=== PATIENT | male | born 1980 | race Caucasian/White ===

== ENCOUNTER 2025-06-24 12:40 | Inpatient (IN) | payer SELFPAY ==
[~2025-06-24] VITALS: Ht 190.5 cm; Wt 102.3 kg
[2025-06-24 14:05] LABS: MEAN PLATELET VOLUME 8.2 FL (7.4-10.4); RED CELL DISTRIBUTION WIDTH 14.1 % (11.5-14.5)
[2025-06-24 14:13] LABS: CREATININE 0.83 MG/DL (0.60-1.10); TOTAL CARBON DIOXIDE 25.4 MMOL/L (24-32); eCRCL 136 ML/MIN; eGFR > 90 ML/MIN
--- NOTE | 2025-06-24 14:18 | RADIOLOGY REPORT ---
Indication: numbness in legs and bowel incont. focus on lumbar please Technique: CT axial images of the abdomen and pelvis are obtained without contrast. Coronal and sagittal reformats were obtained. Radiation Dose Information: CTDI volume is 34 mGy. Dose-length product is 1708 mGy*cm Comparison: None FINDINGS: There is limited interpretation of the abdomen and pelvis without administration of intravenous contrast. Lung bases demonstrate no pleural effusion Adrenal glands, spleen, pancreas unremarkable in shape. Liver unremarkable in shape. No CT evidence for cholelithiasis. No hydronephrosis /nephrolithiasis. Stomach partially distended. Small bowel loops are normal in caliber. Colonic diverticula. No secondary signs for appendicitis. Bladder partially distended. No free pelvic fluid. No inguinal lymphadenopathy. No aggressive osseous process. Trch-ev-hmgzahuh thoracolumbar degenerative disc disease. IMPRESSION: Limited evaluation without contrast. No hydronephrosis/ nephrolithiasis. No bowel obstruction.
--- NOTE | 2025-06-24 15:03 | RADIOLOGY REPORT ---
EXAM: CT CT L SPINE RECONSTRUCTIION HISTORY: 45-year-old male with lower extremity numbness, bowel incontinence. COMPARISON: None available. TECHNIQUE: Noncontrast axial CT images of the lumbar spine were performed. Sagittal and coronal reformatted images were obtained. This CT exam was performed using one or more of the following dose reduction techniques: Automated exposure control, adjustment of the mA and/or kv according to patient size, or the use of iterative reconstruction techniques. Radiation Dose: CT Dose: CTDI volume is 34 mGy. Dose-length product is 1708 mGy*cm FINDINGS: No fracture or listhesis are identified about the lumbar spine. There is mild lumbar degenerative disc disease. There are thoracolumbar and lumbosacral transitional vertebrae. There is significant neural foraminal stenosis on the right at L4-L5. There is mild spinal canal stenosis at every disc level L2-L5. No high-grade spinal canal stenosis is identified at any level in the lumbar spine. There are mild sacroiliac degenerative changes bilaterally. The prostate is mildly enlarged. IMPRESSION: 1. No fracture of the lumbar spine. 2. Lumbar degenerative disc disease with multilevel mild spinal canal stenosis. No high-grade spinal canal stenosis at any level in the lumbar spine. 3. Significant neural foraminal stenosis on the right at L4-L5. These findings May correspond to right lower extremity radicular symptoms in the L4 nerve root distribution. 4. Thoracolumbar and lumbosacral transitional vertebrae incidentally noted. 5. Mild prostatic enlargement.
[2025-06-24 15:12] LABS: LEUKOCYTE ESTERASE ,URINE NEGATIVE (Neg); NITRITES, URINE NEGATIVE (Neg); OCCULT BLOOD,URINE NEGATIVE (Neg); UA COLLECTION TYPE NON-SPECIFIED
[2025-06-24 15:18] LABS: MUCUS STRANDS MODERATE /LPF (Neg); SQUAMOUS EPITHELIAL CELL,UR NONE SEEN /LPF (FEW)
--- NOTE | 2025-06-24 15:19 | RADIOLOGY REPORT ---
Exam: CT CT HEAD History: ascending numbness/weakness Technique: [address] images through the posterior fossa and the supratentorial compartment were acquired without contrast and imaged using soft tissue and bone algorithms. RADIATION DOSE: DLP 1111.63 mGy.cm; CTDI vol 58.92 mGy. Comparison: None Findings: There is no evidence of an intracranial hemorrhage, acute large vessel infarct, mass effect, or midline shift. No significant calcification of the carotid siphons. The calvarium, orbits, paranasal sinuses, sella, middle ears, and mastoids are unremarkable. The superficial soft tissues are within normal limits. Impression: 1. No acute intracranial abnormality.
[2025-06-24 15:23] LABS: URINE AMPHETAMINE SCREEN NEGATIVE (Neg); URINE BARBITUATE SCREEN NEGATIVE (Neg); URINE BENZODIAZEPINES SCREEN NEGATIVE (Neg); URINE CANNABINOID SCREEN POSITIVE (Neg); URINE COCAINE SCREEN NEGATIVE (Neg); URINE METHADONE SCREEN NEGATIVE (Neg); URINE OPIATE SCREEN NEGATIVE (Neg); URINE PHENCYCLIDINE SCREEN NEGATIVE (Neg)
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
--- NOTE | 2025-06-24 15:55 | RADIOLOGY REPORT ---
Indication: upper and lower extremity weakness Technique: CT axial images of the thoracic spine are obtained without contrast. Coronal and sagittal reformats were obtained. Radiation Dose Information: CTDI volume is 24 mGy. Dose-length product is 953 mGy*cm Comparison: None FINDINGS: Thoracic vertebral body heights are maintained. Siqb-eh-jwvlsuvm multilevel disc space narrowing. Alignment preserved. Mild facet hypertrophic changes. No CT evidence for high-grade neural foraminal stenosis in the thoracic spine. 3 mm disc osteophyte complex at T8-9. IMPRESSION: Mwim-ey-quvyveya thoracic degenerative disc disease.
[2025-06-24] MEDS: HYDROcodone/acetaminophen 5mg/325mg tablet PO ONE (16:11)
[2025-06-24] MEDS ORDERED: GABA-530 PO (16:23)
--- NOTE | 2025-06-24 17:40 | RADIOLOGY REPORT ---
EXAM: MR MRI LUMBAR SPINE INDICATION: ascending weakness and numbness TECHNIQUE: Multiplanar, multisequence MR images of the lumbar spine were obtained without the administration of IV contrast. COMPARISON: CT CT L SPINE RECONSTRUCTIION on DOS: 06/24/25 FINDINGS: [ANATOMY]: Five lumbar-type vertebral bodies are present. The most inferior well-formed disc space will be referred to as L5-S1 for purposes of numbering in this report. Favor congenitally short pedicles most conspicuous at L2-3, L3-4, L4-5 and L5-S1. [VERTEBRAL BODIES]: The vertebral bodies are normal in height, alignment, and marrow signal. [SPINAL CANAL]: The conus medullaris is normal in signal and morphology, terminating at the L1-L2 level. Mild relative diffuse spinal canal narrowing most conspicuous at L3-4 and L4-5 and L5-S1 relative to the thoracic canal. [FACETS]: Mild bilateral multilevel facet arthropathy. [OTHER]: None. LEVEL BY LEVEL DISCUSSION: [T12-L1]: Unremarkable. [L1-L2]: Unremarkable. [L2-L3]: Unremarkable. [L3-L4]: Unremarkable. [L4-L5]: Broad-based central disc protrusion measuring 2 mm which May affect the descending L5 nerve roots. Trace ligamentum flavum buckling. mild bilateral foraminal narrowing with mild bilateral facet arthropathy [L5-S1]: Unremarkable. IMPRESSION: 1. Trace disc protrusion at L4-5 which may affect the descending L5 nerve roots. 2. Mild bilateral L4-5 foraminal narrowing.
[2025-06-24] MEDS ORDERED: potassium Cl 40MEQ/1/2NS 520ml 520 ML IV PRN (18:45)
[2025-06-24] MEDS ORDERED: HYDROcodone/acetaminophen 5mg/325mg tablet PO PRN (18:45)
[2025-06-24] MEDS ORDERED: mag hydrox/Alum hydrox/simeth 30ml oral suspension PO PRN (18:45)
[2025-06-24] MEDS ORDERED: ondansetron/PF 4mg/2ml inj IV PRN (18:45)
[2025-06-24] MEDS ORDERED: magnesium hydroxide 30ml (MOM) UD suspension PO PRN (18:45)
[2025-06-24] MEDS ORDERED: magnesium sulf-water 4G/100mL 100 ML IV PRN (18:45)
[2025-06-24] MEDS ORDERED: potassium Cl 20 mEq SR tablet PO PRN ×2 (18:45)
[2025-06-24] MEDS ORDERED: magnesium sulf-water 2g/50mL 50 ML IV PRN (18:45)
[2025-06-24] MEDS ORDERED: albuterol 2.5 MG/3 ML nebule NEB PRN (18:45)
[2025-06-24] MEDS ORDERED: ipratropium/albuterol 3ml nebule NEB PRN (18:45)
[2025-06-24 19:03] VITALS: PULSE 92; RESP 16; O2SAT 98
--- NOTE | 2025-06-24 19:13 | [facility]SULT REPORT ---
[facility] Procedure Note [facility] Procedure Note Consult [facility] Note # Demographics Consult Type: General Neurology Patient Location: Emergency Room First Name: Angel Last Name: Castillo Date of : 1980 Age: 45 Gender: Male Facility: [facility] Time of Initial Page (): 06/24/2025 18:42 First Contact with Site (): 06/24/2025 18:46 Phone Only Consult: 45y M who has history of neuropathy (paresthesias and weakness) which began 3 months ago after a spider bite who presented with diarrhea. He is concerned about heavy metal poisoning. He does have history of alcohol abuse but has been doing whip its. MRI of the entire neuro axis is done and brain and C spine are pending read Phone Agreement: - phone consult deemed mutually sufficient for patient care # Assessment Impression: - Other - Weakness and numbness for 3 months (stable) - Frequent "whippit" use # Plan Other: - If patient has any neurological deterioration please call me back immediately - I have discussed my recommendations with the referring provider - High dose B12 1mg every other day for 1-2 weeks - Follow up with outpatient neurology # Logistics Attestation of consult completion: The patient is located at: [facility]. I performed this phone consultation from my offsite office Consent: Verbal consent was obtained from the patient and/or family for this encounter. Total time spent in telemedicine encounter: I spent 5 minutes in reviewing clinical data and/or imaging, obtaining history, communicating with the onsite care team, and in preparation of this report. # Demographics First Name: Angel Last Name: Castillo Facility: [facility] Electronically signed at 06/24/2025 19:11 () by Kelin Restrepo DO Neuro Consult Order placed for: Yes KELIN RESTREPO DO Jun 24, 2025 19:13
[2025-06-24] MEDS: K and/or MAG REPLACEMENT MC SCH (19:16)
[2025-06-24] MEDS: docusate sod 100mg capsule PO SCH (19:17)
[2025-06-24] MEDS: normal saline 1000ml 1,000 ML IV SCH (19:30)
[2025-06-24] MEDS: HYDROmorphone inj. 0.5 MG/0.5 ML DISP.SYRIN IV PRN (19:31)
[2025-06-24] MEDS: heparin, porcine 5000 units/ml vial SQ SCH (19:31)
--- NOTE | 2025-06-24 22:15 | HISTORY AND PHYSICAL ---
History & Physical Providers to CC ~ History of Present Illness Reason for Admit\Complaint: Lower extremity paresis/ neuropathic pain History of Present Illness This is a 45-year-old male who has a whole host of complaints over the past three months the patient did notice six months ago that he had a spider bite on his left foot that was open. This has since healed up the patient has noticed over the past three months difficulty ambulating which has been progressively worse significant pain at the soles of his feet and tingling and pins and needles scattered throughout his body when he takes a shower it feels like pins and needles all over his skin for one-week duration as well. CT scan of the thoracic and lumbar spine has been obtained as well as a lumbar MRI and head CT scan which the imaging studies do not explain the patient's symptoms. However discovered that the patient had history of substance use an has been sober from alcohol for 90 days. I discovered that the patient had been using copious amounts of Whipits (nitrous oxide) for the past three months. Tele neurology evaluated the patient and high dose vitamin B12 1 mg every other day for 1-2 weeks physical therapy is ordered Allergies: Coded Allergies: No Known Allergies (Unverified , 06/24/25) Home Medications Home Medications Active Reported Gabapentin 100 Mg Capsule 1 Cap PO TID Past Medical History Past Medical History No chronic health conditions Past Surgical History Surgical History Comment Appendectomy, ganglion cyst Family History Family History: FH: kidney cancer FATHER Malignant melanoma of skin FATHER Past Social History Social History Comment Quit smoking cigarettes seven years ago, alcohol use disorder sober times 90 days history of heavy alcohol use, nasal cocaine use last use one year ago, history of smoking or oxycodone on tin foil from 2010 the 2013, 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 Full code status Exam Vitals: Vital Signs Date Time Temp Pulse Resp B/P (MAP) Pulse Ox O2 Delivery O2 Flow Rate FiO2 06/24/25 21:50 16 06/24/25 21:13 90 114/84 (94) 97 0 06/24/25 19:03 Room Air* 21 06/24/25 18:03 97.8 General: Gen. No acute distress alert and oriented 4 Lungs clear to ascultation bilaterally, no wheezes rales or rhonchi appreciated Heart normal sinus rhythm no murmurs rubs or clicks noted Abdomen soft nontender bowel sounds are normoactive Lower extremities no clubbing cyanosis, nor edema appreciated bilaterally Diagnostic Data Last Recorded Lab Results: 06/24/25 1339 06/24/25 1339 Advance Care Planning Advanced Care plannin - 30 Minutes Problems: (1) Polyneuropathy (2) Polyneuropathic pain Additional Plan # polyneuropathy # poly neuropathic pain CT scan of the thoracic and lumbar spine findings do not explain the patient's neurological symptoms nor the MRI of the lumbar spine, MRI of the head has been obtained awaiting radiology read MRI of the cervical and thoracic spine is ordered. The patient various neurological complaints are likely secondary to a toxic side-effects of copious amounts of nitrous oxide inhalation over the past three months- tele neurologist Dr. Garduno recommended high dose vitamin B12 1 mg IM every other day times 1-2 weeks which is ordered. Physical therapy is ordered # diarrhea CT scan of the abdomen and pelvis noncontrast was unremarkable. # substance use disorder Substance use navigator Katie Collazo consult is ordered # DVT prophylaxis SQ heparin I spent a total of 17 minutes on reviewing various resuscitative measures/ ACP with the patient at the time of admission. The patient has decided on full code status Date of Service: Jun 24, 2025 Billing Provider: ESTHER GUNTER DO Common Visit Codes: 96199-[id number] INP/OBS CARE (HIGH) Secondary Visit Codes: [id number] CARE PLAN 30 MINUTES ESTHER GUNTER DO Jun 24, 2025 22:15
[2025-06-24 22:56] VITALS: BP 138/91; PULSE 84; RESP 16; TEMP 97.7; O2SAT 95
[2025-06-25] MEDS: HYDROcodone/acetaminophen 10/325mg tab PO PRN (00:33)
[2025-06-25 05:00] VITALS: BP 120/78; PULSE 76; RESP 16; TEMP 97.5; O2SAT 98
[2025-06-25 05:34] LABS: MEAN PLATELET VOLUME 8.1 FL (7.4-10.4); RED CELL DISTRIBUTION WIDTH 14.5 % (11.5-14.5)
[2025-06-25 05:49] LABS: CREATININE 0.84 MG/DL (0.60-1.10); TOTAL CARBON DIOXIDE 28.7 MMOL/L (24-32); eCRCL 134 ML/MIN; eGFR > 90 ML/MIN
[2025-06-25 08:00] VITALS: BP 130/70; PULSE 103; RESP 16; TEMP 97.9; O2SAT 99
[2025-06-25] MEDS ORDERED: diazepam inj 5 MG/ML inj. IV ONE (08:40)
[2025-06-25] MEDS: diazepam inj 5 MG/ML inj. IV ONE (09:01)
[2025-06-25 09:30] VITALS: RESP 18; O2SAT 98
[2025-06-25 10:55] VITALS: BP 120/82; PULSE 92; RESP 14; TEMP 97.4; O2SAT 99
--- NOTE | 2025-06-25 11:15 | RADIOLOGY REPORT ---
CLINICAL INDICATION: ascending weakness and numbness COMPARISON: CT CT HEAD on DOS: 06/24/25 TECHNIQUE: Multisequence multiplanar MRI images of the brain were obtained without contrast. FINDINGS: Artifact limits evaluation on some sequences. No acute infarct or hemorrhage. No mass or midline shift. Ventricles and sulci are within normal limits. Basal cisterns are patent. Cerebellum, brainstem, and midline structures are within normal limits. Mild mucosal thickening of the paranasal sinuses. Orbits are grossly unremarkable. IMPRESSION: 1. Artifact limits evaluation on multiple sequences. 2. No evidence of acute infarct or hemorrhage.
--- NOTE | 2025-06-25 11:31 | RADIOLOGY REPORT ---
PROCEDURE: MR MRI C SPINE Indication: ascending weakness and numbness COMPARISON: None TECHNIQUE: Multiplanar multisequence images of the the cervical spine are obtained. FINDINGS: Examination degraded by motion The cervical vertebral body heights are maintained. Straightening of normal cervical spine curvature. Kkeq-uv-bzjtfgdy multilevel disc space narrowing. No prevertebral edema. No abnormal marrow edema. Atlantooccipital, atlantoaxial articulations intact. C2-3: No spinal canal stenosis. No neural foraminal stenosis. C3-4: Small disc osteophyte complex.m thecal sac measures 10 mm AP. No spinal canal stenosis. Moderate left and mild right neural foraminal stenosis secondary to facet and uncovertebral hypertrophy. C4-5: Small disc osteophyte complex. No spinal canal stenosis. Aoup-et-oltmrrgk left neural foraminal stenosis. C5-6: Small disc osteophyte complex. No spinal canal stenosis. Kifa-wg-ynaijvgb left and mild right neural foraminal stenosis. C6-7: Small disc osteophyte complex. No spinal canal stenosis. Moderate left and mkyu-ku-nkjcvyuh right neural foraminal stenosis. C7-T1: Small disc osteophyte complex. No spinal canal stenosis. Ywhq-nq-ksgijkkx bilateral neural foraminal stenosis IMPRESSION: Nyhp-nq-mmnpjjgs cervical degenerative disc disease. No high-grade spinal canal stenosis. Ulxh-bo-eyjcorrh multilevel neural foraminal stenosis.
--- NOTE | 2025-06-25 11:34 | RADIOLOGY REPORT ---
PROCEDURE: MR MRI THORACIC SPINE Indication: ascending weakness and numbness COMPARISON: CT CT THORACIC SPINE on DOS: 06/24/25 TECHNIQUE: Multiplanar multisequence images of the the thoracic spine are obtained. FINDINGS: The Thoracic vertebral body heights are maintained. Ctry-ij-qefzhahx multilevel disc space narrowing and desiccation. No abnormal marrow edema. 7 mm T6 vertebral body hemangioma. Small right paracentral disc protrusion measuring 3 mm at T8-9. There is no high-grade thoracic spinal canal, neural foraminal stenosis. The thoracic cord is normal in morphology and signal. IMPRESSION: Nvwy-jo-mnpmzbmd thoracic degenerative disc disease.
[2025-06-25 14:10] VITALS: BP 123/80; PULSE 90; RESP 16; TEMP 98
--- NOTE | 2025-06-25 22:31 | DISCHARGE SUMMARY ---
Discharge Summary Providers to CC ~ Discharge Summary Admission Diagnosis: paresis lower extremity with systemic neuropathy Hospital Course DATE OF ADMISSION: 06/24/2025 DATE OF DISCHARGE: 06/25/2025 Discharge Diagnosis\Comment: Polyneuropathy, [place] neuropathic pain, diarrhea, substance use disorder Operations\Procedures: None Consultants: tele neurologist Complications: Unknown patient left AMA Condition on DC: Stable Discharge Summary: I admitted the patient with the following HPI:This is a 45-year-old male who has a whole host of complaints over the past three months the patient did notice six months ago that he had a spider bite on his left foot that was open. This has since healed up the patient has noticed over the past three months difficulty ambulating which has been progressively worse significant pain at the soles of his feet and tingling and pins and needles scattered throughout his body when he takes a shower it feels like pins and needles all over his skin for one-week duration as well. CT scan of the thoracic and lumbar spine has been obtained as well as a lumbar MRI and head CT scan which the imaging studies do not explain the patient's symptoms. However discovered that the patient had history of substance use an has been sober from alcohol for 90 days. I discovered that the patient had been using copious amounts of Whipits (nitrous oxide) for the past three months. Tele neurology evaluated the patient and high dose vitamin B12 1 mg every other day for 1-2 weeks physical therapy is ordered. The patient had an MRI of the head which was negative for any acute infarct or hemorrhage. Cervical spine MRI has a following findings: Dysw-nd-vjmsvvdb cervical degenerative disc disease. No high-grade spinal canal stenosis. Atgg-qb-toplipyf multilevel neural foraminal stenosis. Thoracic spine MRI with the following findings: Jqlp-xp-lfuuaspb thoracic degenerative disc disease. The patient had informed me he wanted to be discharged in the afternoon of the - I inform the patient he needs to work with physical therapy and we needed to arrange for him to receive vitamin B12 to give IM injections which would has been obtained at his pharmacy. At the time of this dictation that has discovered the patient left AMA at 8:25 p.m. Gen. No acute distress alert and oriented 4 Lungs clear to ascultation bilaterally, no wheezes rales or rhonchi appreciated Heart normal sinus rhythm no murmurs rubs or clicks noted Abdomen soft nontender bowel sounds are normoactive Lower extremities no clubbing cyanosis, nor edema appreciated bilaterally The patient was evaluated and seen on the . *Problems/Diagnosis: (1) Polyneuropathy (2) Polyneuropathic pain Total Time Spent on D/C: > 30 Minutes Date of Service: Jun 25, 2025 Billing Provider: ESTHER GUNTER DO Common Visit Codes: [id number] INP/OBS CARE(HIGH) ESTHER GUNTER DO Jun 25, 2025 22:30
== END 2025-06-25 20:35 | disposition left against medical advice (07) | DRG 74 ==
LOC: ER 12:41 → ED HOLD 18:55 → EDBEDREQ 20:48 → ORTHO 4S 22:56
PROVIDERS: ADMIT Family Medicine; ATTEND Family Medicine
DX: G62.9 Polyneuropathy, unspecified (principal); Z53.21 Procedure and treatment not carried out due to patient leaving prior to being seen by health care provider; M50.30 Other cervical disc degeneration, unspecified cervical region; M51.34 Other intervertebral disc degeneration, thoracic region; Z80.8 Family history of malignant neoplasm of other organs or systems; Z80.51 Family history of malignant neoplasm of kidney
CPT/HCPCS: 36415; 70450; 72128; 72141; 72146; 74176; 80053; 80305; 81001; 83690; 83735; 85025; 87081; 94760; 96374; 96375; 99285; G0378; J1171; J1644; J2060; J3360; J3420; J7030